=== PATIENT | male | born 1940 | race Asian ===

== ENCOUNTER 2016-05-24 08:28 | Inpatient (IN) | payer MEDICARE, BC, OTHER ==
[~2016-05-24] VITALS: Ht 165.1 cm; Wt 61.0 kg
[~2016-05-24 08:28] MED LIST: ASPI-825 PO; ATOR40TA28 PO; CAPT50TA3 PO; ESOM40CA PO; METF850T2 PO; MULT1TAB70 PO; NIFE-4 PO; PIOG45TA PO; TELM40 PO; VITA1CAP29 PO
[2016-05-24 09:14] LABS: ANION GAP 23 mmol/L (8-16); CALCIUM, TOTAL 8.7 mg/dL (8.8-10.5); CARBON DIOXIDE 15 mmol/L (22-29); CHLORIDE 94 mmol/L (98-107); CREATININE 1.78 mg/dL (0.60-1.30); GLOMERULAR FILTR. RATE CALC 37 mL/min (>60); POTASSIUM 4.8 mmol/L (3.5-5.1); SODIUM SERUM 132 mmol/L (136-145); UREA NITROGEN, BLOOD 20 mg/dL (7-18)
[2016-05-24 09:24] LABS: BASOPHILS % (AUTO) 0.1 % (0.0-2.0); EOSINOPHILS % (AUTO) 0.1 % (1.0-6.0); HEMATOCRIT 26.4 % (41-53); HEMOGLOBIN 8.4 g/dL (13.5-17.5); LYMPHOCYTES # (AUTO) 12.7 K/uL (1.0-4.8); MEAN CORPUSCULAR HEMOGLOBIN 28.8 pg (26.0-34.0); MEAN CORPUSCULAR HGB CONC 31.8 G/dL (31.0-37.0); MEAN CORPUSCULAR VOLUME 91 fL (80-100); MONOCYTES # (AUTO) 1.1 K/uL (0.1-1.0); MONOCYTES % (AUTO) 5.1 % (2.0-9.0); NEUTROPHILS # (AUTO) 8.4 K/uL (1.8-7.7); NEUTROPHILS % (AUTO) 37.7 % (40.0-70.0); RED BLOOD CELL COUNT(AUTO) 2.91 MIL/uL (4.50-5.90); RED CELL DISTRIBUTION WIDTH 18.7 % (11.5-14.5); WHITE BLOOD COUNT (AUTO) 22.2 K/uL (4.5-11.0)
[2016-05-24 09:35] LABS: B-TYPE NATRIURETIC PEPTIDE 119 pg/mL (0-100)
[2016-05-24 09:39] LABS: ALBUMIN 3.5 g/dL (3.4-5.0); ASPARTATE AMINOTRANSFERASE 73 U/L (15-37); BILIRUBIN,TOTAL 1.6 mg/dL (0.1-1.0); CREATINE KINASE MB 1.1 ng/mL (0-5); CREATINE KINASE, TOTAL 94 U/L (39-308); TOTAL PROTEIN, SERUM 7.9 g/dL (6.4-8.2)
[2016-05-24] MEDS ORDERED: OSELTAMIVIR PHOSPHATE 75 MG CAPSULE PO ONE (09:45)
[2016-05-24] MEDS ORDERED: CEFTAROLINE FOSAMIL 400 MG in DEXTROSE 5%-WATER 250 ML IV ONE (09:45)
[2016-05-24] MEDS ORDERED: AZITHROMYCIN 500 MG/NS 250 ML IV ONE (09:45)
[2016-05-24] MEDS ORDERED: SODIUM CHLORIDE 0.9% 1,000 ML IV ONE ×2 (09:45→13:15)
[2016-05-24 09:48] LABS: PLATELET COUNT (AUTO) 42 K/uL (150-450); RBC MORPHOLOGY COMMENT ABNORMAL RBC MORPH
[2016-05-24 09:54] LABS: INFLUENZA TYPE B NEGATIVE FOR TYPE B (NEGATIVE)
[2016-05-24 09:56] LABS: ABG A-A DIFF O2 434.4 mmHg (10-20.0); ABG BASE EXCESS -10.9 mmol/L (-2.0-3.0); ABG HCO3 16.6 mmol/L (22.0-26.0); ABG OXYHEMOGLOBIN 96.9 % (94.0-100.0); ABG PCO2 24 mmHg (35-45); ABG PH 7.389 (7.35-7.450); TEMPERATURE, FAHRENHEIT, BG 98.6 FAHREN (96.0-98.6)
[2016-05-24 09:57] LABS: ALLEN TEST, BLOOD GAS Positive; IPAP, BG 12 cm H2O
[2016-05-24 10:26] LABS: ALANINE AMINOTRANSFERASE 41 U/L (12-78)
[2016-05-24 10:26] LABS: LACTIC ACID 8.9 mmol/L (0.4-2.0)
[2016-05-24] MEDS ORDERED: ONDANSETRON HCL 4 MG/2 ML VIAL IVP PRN ×2 (11:00→13:15)
[2016-05-24] MEDS ORDERED: ACETAMINOPHEN 325 MG TABLET PO PRN ×2 (11:00→13:15)
[2016-05-24 11:41] LABS: REFLEX LACTIC ACID? YES YES
[2016-05-24] MEDS ORDERED: IPRATROPIUM BROMIDE 0.5 MG/2.5 ML NEB SOLUTION NEB PRN (13:15)
[2016-05-24] MEDS ORDERED: MAGNESIUM HYDROXIDE SUSPENSION 30 ML UDCUP PO PRN (13:15)
[2016-05-24] MEDS ORDERED: BISACODYL 10 MG RECTAL RECTAL SUPPOSITORY PR PRN (13:15)
[2016-05-24] MEDS ORDERED: HYDROCODONE/ACETAMINOPHEN 5-325 MG TABLET PO PRN (13:15)
[2016-05-24] MEDS ORDERED: MORPHINE SULFATE 2 MG/ML SYRINGE IVP PRN (13:15)
[2016-05-24] MEDS ORDERED: HydrALAZINE HCL 10 MG TABLET PO PRN (13:15)
[2016-05-24] MEDS ORDERED: ZOLPIDEM TARTRATE 5 MG TABLET PO PRN (13:15)
[2016-05-24] MEDS ORDERED: *CLINICAL-LEVOFLOXACIN IVPB DOSING CLINICAL ONE ×2 (13:15)
[2016-05-24] MEDS ORDERED: ALBUTEROL SULFATE 2.5 MG/0.5 ML NEB SOLUTION NEB PRN (13:15)
[2016-05-24] MEDS: ALBUTEROL SULFATE 2.5 MG/0.5 ML NEB SOLUTION NEB SCH ×2 (14:07→20:52)
[2016-05-24] MEDS: IPRATROPIUM BROMIDE 0.5 MG/2.5 ML NEB SOLUTION NEB SCH ×2 (14:07→20:52)
[2016-05-24 15:03] VITALS: BP 148/50
[2016-05-24] MEDS: HEPARIN SODIUM,PORCINE 5,000 UNITS/ML VIAL SQ SCH ×2 (17:21→23:41)
[2016-05-24] MEDS: BENZONATATE 100 MG CAPSULE PO SCH ×2 (17:21→21:08)
[2016-05-24] MEDS: MethylPREDNISolone SOD SUCC 125 MG/2 ML VIAL IVP SCH ×2 (17:26→23:42)
[2016-05-24 19:01] LABS: INR 1.1 (0.9-1.1); PROTHROMBIN TIME 11.7 SEC (9.4-11.6)
[2016-05-24 20:30] VITALS: BP 149/75
[2016-05-24] MEDS: BUDESONIDE 0.5 MG/2 ML NEB SOLUTION NEB SCH (20:52)
[2016-05-24] MEDS ORDERED: [UNRECOGNIZED DRUG - OTHER] PO SCH (21:00)
[2016-05-24] MEDS: ATORVASTATIN CALCIUM 40 MG TABLET PO SCH (21:08)
[2016-05-24] MEDS: NIFEdipine 30 MG ER TABLET PO SCH (21:09)
[2016-05-24] MEDS: DOCUSATE SODIUM 100 MG CAPSULE PO SCH (21:10)
[2016-05-24] MEDS: GuaiFENesin SR 600 MG ER TABLET PO SCH (21:10)
[2016-05-24 23:20] VITALS: BP 123/65
[2016-05-25] MEDS: ALBUTEROL SULFATE 2.5 MG/0.5 ML NEB SOLUTION NEB SCH ×4 (02:34→19:29)
[2016-05-25] MEDS: IPRATROPIUM BROMIDE 0.5 MG/2.5 ML NEB SOLUTION NEB SCH ×4 (02:34→19:29)
[2016-05-25 05:13] VITALS: BP 124/79
[2016-05-25] MEDS: MethylPREDNISolone SOD SUCC 125 MG/2 ML VIAL IVP SCH ×3 (05:45→18:44)
[2016-05-25 07:06] VITALS: BP 122/70
[2016-05-25] MEDS: BUDESONIDE 0.5 MG/2 ML NEB SOLUTION NEB SCH ×2 (07:36→19:29)
[2016-05-25] MEDS ORDERED: SODIUM CHLORIDE 0.9% 250 ML IV ONE (09:50)
[2016-05-25] MEDS: ATORVASTATIN CALCIUM 40 MG TABLET PO SCH ×2 (09:59→20:33)
[2016-05-25] MEDS: CAPTOPRIL 25 MG TABLET PO SCH (09:59)
[2016-05-25] MEDS: PANTOPRAZOLE SODIUM 40 MG DR TABLET PO SCH (09:59)
[2016-05-25] MEDS: NIFEdipine 30 MG ER TABLET PO SCH ×2 (09:59→20:33)
[2016-05-25] MEDS: ASPIRIN 81 MG CHEWABLE TABLET PO SCH (10:00)
[2016-05-25] MEDS: BENZONATATE 100 MG CAPSULE PO SCH ×3 (10:00→20:34)
[2016-05-25] MEDS: DOCUSATE SODIUM 100 MG CAPSULE PO SCH ×2 (10:00→20:33)
[2016-05-25] MEDS: MULTIVITAMINS, THERAPEUTIC TABLET PO SCH (10:00)
[2016-05-25] MEDS: GuaiFENesin SR 600 MG ER TABLET PO SCH ×2 (10:00→20:33)
[2016-05-25] MEDS: HEPARIN SODIUM,PORCINE 5,000 UNITS/ML VIAL SQ SCH ×2 (10:05→16:55)
[2016-05-25] MEDS: LEVOFLOXACIN 750 MG/D5% WATER 150 ML IV SCH (10:27)
[2016-05-25 11:20] VITALS: BP 131/77
[2016-05-25] MEDS ORDERED: DEXTROSE 50%-WATER 25 GM/50 ML SYRINGE IVP PRN (13:15)
[2016-05-25 15:18] VITALS: BP 131/67
[2016-05-25] MEDS: INSULIN ASPART 100 UNITS/ML SQ PRN ×2 (18:48→20:35)
[2016-05-25 19:55] VITALS: BP 124/60
[2016-05-25 20:31] LABS: GLUCOSE COMMENT 1 Received Meds; GLUCOSE,POINT OF CARE 298 MG/DL (70-110)
[2016-05-25 20:31] LABS: GLUCOSE COMMENT 1 Received Meds; GLUCOSE,POINT OF CARE 305 MG/DL (70-110)
[2016-05-25 23:52] VITALS: BP 121/63
[2016-05-26] MEDS: HEPARIN SODIUM,PORCINE 5,000 UNITS/ML VIAL SQ SCH ×3 (00:18→16:43)
[2016-05-26] MEDS: MethylPREDNISolone SOD SUCC 125 MG/2 ML VIAL IVP SCH ×4 (00:18→18:08)
[2016-05-26] MEDS: ALBUTEROL SULFATE 2.5 MG/0.5 ML NEB SOLUTION NEB SCH ×4 (02:24→19:36)
[2016-05-26] MEDS: IPRATROPIUM BROMIDE 0.5 MG/2.5 ML NEB SOLUTION NEB SCH ×4 (02:24→19:36)
[2016-05-26 04:43] VITALS: BP 124/66
[2016-05-26 06:26] LABS: GLUCOSE COMMENT 1 Received Meds; GLUCOSE,POINT OF CARE 270 MG/DL (70-110)
[2016-05-26] MEDS: INSULIN ASPART 100 UNITS/ML SQ PRN ×4 (06:42→22:09)
[2016-05-26 07:34] VITALS: BP 122/66
[2016-05-26] MEDS: BUDESONIDE 0.5 MG/2 ML NEB SOLUTION NEB SCH ×2 (08:32→19:36)
[2016-05-26] MEDS: ASPIRIN 81 MG CHEWABLE TABLET PO SCH (08:59)
[2016-05-26] MEDS: NIFEdipine 30 MG ER TABLET PO SCH ×2 (08:59→22:14)
[2016-05-26] MEDS: MULTIVITAMINS, THERAPEUTIC TABLET PO SCH (08:59)
[2016-05-26] MEDS: ATORVASTATIN CALCIUM 40 MG TABLET PO SCH ×2 (09:00→22:10)
[2016-05-26] MEDS: DOCUSATE SODIUM 100 MG CAPSULE PO SCH ×2 (09:00→21:00)
[2016-05-26] MEDS: PANTOPRAZOLE SODIUM 40 MG DR TABLET PO SCH (09:00)
[2016-05-26] MEDS: GuaiFENesin SR 600 MG ER TABLET PO SCH ×2 (09:01→22:10)
[2016-05-26] MEDS: BENZONATATE 100 MG CAPSULE PO SCH ×3 (09:03→22:10)
[2016-05-26] MEDS: CAPTOPRIL 25 MG TABLET PO SCH (09:04)
[2016-05-26 09:08] LABS: BASOPHILS # (AUTO) 0.03 K/uL (0.00-0.20); BASOPHILS % (AUTO) 0.4 % (0.0-2.0); EOSINOPHILS % (AUTO) 0.05 % (1.0-6.0); HEMATOCRIT 21.7 % (41-53); HEMOGLOBIN 7.1 g/dL (13.5-17.5); LYMPHOCYTES # (AUTO) 0.6 K/uL (1.0-4.8); LYMPHOCYTES % (AUTO) 7.3 % (22.0-44.0); MEAN CORPUSCULAR HEMOGLOBIN 28.6 pg (26.0-34.0); MEAN CORPUSCULAR HGB CONC 32.7 G/dL (31.0-37.0); MEAN CORPUSCULAR VOLUME 88 fL (80-100); MONOCYTES # (AUTO) 0.1 K/uL (0.1-1.0); MONOCYTES % (AUTO) 0.9 % (2.0-9.0); NEUTROPHILS # (AUTO) 7.6 K/uL (1.8-7.7); RED BLOOD CELL COUNT(AUTO) 2.48 MIL/uL (4.50-5.90); RED CELL DISTRIBUTION WIDTH 19.4 % (11.5-14.5); WHITE BLOOD COUNT (AUTO) 8.3 K/uL (4.5-11.0)
[2016-05-26 09:23] LABS: NEUTROPHILS % (AUTO) 91.4 % (40.0-70.0)
[2016-05-26 09:25] LABS: ANION GAP 12 mmol/L (8-16); CALCIUM, TOTAL 8.8 mg/dL (8.8-10.5); CARBON DIOXIDE 23 mmol/L (22-29); CHLORIDE 102 mmol/L (98-107); CREATININE 1.02 mg/dL (0.60-1.30); GLOMERULAR FILTR. RATE CALC > 60 mL/min (>60); POTASSIUM 3.8 mmol/L (3.5-5.1); SODIUM SERUM 137 mmol/L (136-145); UREA NITROGEN, BLOOD 29 mg/dL (7-18)
[2016-05-26 10:09] LABS: PLATELET COUNT (AUTO) 33 K/uL (150-450)
[2016-05-26 11:13] VITALS: BP 121/69
[2016-05-26 15:31] VITALS: BP 129/68
[2016-05-26 19:28] VITALS: BP 131/70
[2016-05-27] VITALS (14 sets, daily range): BP systolic 109–150; BP diastolic 49–86
[2016-05-27] MEDS: MethylPREDNISolone SOD SUCC 125 MG/2 ML VIAL IVP SCH ×4 (00:30→17:36)
[2016-05-27] MEDS: HEPARIN SODIUM,PORCINE 5,000 UNITS/ML VIAL SQ SCH ×2 (00:34→08:00)
[2016-05-27 01:46] LABS: GLUCOSE COMMENT 1 Received Meds; GLUCOSE,POINT OF CARE 319 MG/DL (70-110)
[2016-05-27] MEDS: ALBUTEROL SULFATE 2.5 MG/0.5 ML NEB SOLUTION NEB SCH ×3 (03:22→14:32)
[2016-05-27] MEDS: IPRATROPIUM BROMIDE 0.5 MG/2.5 ML NEB SOLUTION NEB SCH ×3 (03:22→14:32)
[2016-05-27] MEDS: INSULIN ASPART 100 UNITS/ML SQ PRN ×3 (06:12→17:24)
[2016-05-27 06:57] LABS: ANION GAP 10 mmol/L (8-16); CALCIUM, TOTAL 8.7 mg/dL (8.8-10.5); CARBON DIOXIDE 26 mmol/L (22-29); CHLORIDE 103 mmol/L (98-107); CREATININE 0.91 mg/dL (0.60-1.30); GLOMERULAR FILTR. RATE CALC > 60 mL/min (>60); POTASSIUM 3.9 mmol/L (3.5-5.1); SODIUM SERUM 139 mmol/L (136-145); UREA NITROGEN, BLOOD 27 mg/dL (7-18)
[2016-05-27 07:08] LABS: MEAN CORPUSCULAR HEMOGLOBIN 27.8 pg (26.0-34.0); MEAN CORPUSCULAR HGB CONC 31.6 G/dL (31.0-37.0); MEAN CORPUSCULAR VOLUME 88 fL (80-100); PLATELET COUNT (AUTO) 33 K/uL (150-450); RED BLOOD CELL COUNT(AUTO) 2.37 MIL/uL (4.50-5.90); WHITE BLOOD COUNT (AUTO) 6.6 K/uL (4.5-11.0)
[2016-05-27 07:13] LABS: HEMATOCRIT 20.9 % (41-53); HEMOGLOBIN 6.6 g/dL (13.5-17.5)
[2016-05-27 08:05] LABS: BAND NEUTROPHILS % (MANUAL) 6 % (1-5); LYMPHOCYTES % (MANUAL) 8 % (22-44); RBC MORPHOLOGY COMMENT ABNORMAL R; TOTAL CELLS COUNTED 100
[2016-05-27] MEDS: LEVOFLOXACIN 750 MG/D5% WATER 150 ML IV SCH (08:35)
[2016-05-27] MEDS: CAPTOPRIL 25 MG TABLET PO SCH (08:36)
[2016-05-27] MEDS: GuaiFENesin SR 600 MG ER TABLET PO SCH (08:36)
[2016-05-27] MEDS: PANTOPRAZOLE SODIUM 40 MG DR TABLET PO SCH (08:37)
[2016-05-27] MEDS: ATORVASTATIN CALCIUM 40 MG TABLET PO SCH (08:37)
[2016-05-27] MEDS: MULTIVITAMINS, THERAPEUTIC TABLET PO SCH (08:37)
[2016-05-27] MEDS: DOCUSATE SODIUM 100 MG CAPSULE PO SCH (08:37)
[2016-05-27] MEDS: BENZONATATE 100 MG CAPSULE PO SCH ×2 (08:38→16:50)
[2016-05-27] MEDS: NIFEdipine 30 MG ER TABLET PO SCH (08:38)
[2016-05-27] MEDS: ASPIRIN 81 MG CHEWABLE TABLET PO SCH (09:00)
[2016-05-27] MEDS: BUDESONIDE 0.5 MG/2 ML NEB SOLUTION NEB SCH (09:03)
[2016-05-27] MEDS ORDERED: SODIUM CHLORIDE 0.9% 250 ML IV ONE (10:36)
[2016-05-27] MEDS ORDERED: GLIP10 PO (13:40)
[2016-05-27] MEDS ORDERED: ATEN50TA PO (13:40)
[2016-05-27] MEDS ORDERED: CILO100T PO (13:40)
[2016-05-27] MEDS ORDERED: CLOP75 PO (13:40)
[2016-05-27] MEDS ORDERED: MONT10TA21 PO (13:40)
[2016-05-27] MEDS ORDERED: RANI150T7 PO (13:40)
[2016-05-27 21:06] LABS: GLUCOSE COMMENT 1 Received Meds; GLUCOSE,POINT OF CARE 306 MG/DL (70-110)
[2016-05-27 21:06] LABS: GLUCOSE COMMENT 1 Received Meds; GLUCOSE,POINT OF CARE 378 MG/DL (70-110)
[2016-05-28 08:37] LABS: GLUCOSE COMMENT 1 Received Meds; GLUCOSE,POINT OF CARE 326 MG/DL (70-110)
[2016-05-28 08:37] LABS: GLUCOSE,POINT OF CARE 326 MG/DL (70-110)
[2016-05-28 08:37] LABS: GLUCOSE COMMENT 1 Received Meds; GLUCOSE,POINT OF CARE 299 MG/DL (70-110)
[2016-05-28] MEDS ORDERED: LEVOFLOXACIN 750 MG/D5% WATER 150 ML IV SCH (09:00)
== END 2016-05-27 18:10 | DRG 871 ==
LOC: EMS 08:30 → 5S 14:23
PROVIDERS: ADMIT Internal Medicine; ATTEND Internal Medicine
PROC: 5A09457 Assistance with Respiratory Ventilation, 24-96 Consecutive Hours, Continuous Positive Airway Pressure (ICD-10-PCS; principal; 2016-05-24)
PROC: 30233N1 Transfusion of Nonautologous Red Blood Cells into Peripheral Vein, Percutaneous Approach (ICD-10-PCS; 2016-05-27)
DX: A41.9 Sepsis, unspecified organism (principal); J96.01 Acute respiratory failure with hypoxia; J18.9 Pneumonia, unspecified organism; N17.0 Acute kidney failure with tubular necrosis; R04.2 Hemoptysis; E87.2 Acidosis; E87.1 Hypo-osmolality and hyponatremia; D64.9 Anemia, unspecified; D69.6 Thrombocytopenia, unspecified; E11.65 Type 2 diabetes mellitus with hyperglycemia; E80.6 Other disorders of bilirubin metabolism; I12.9 Hypertensive chronic kidney disease with stage 1 through stage 4 chronic kidney disease, or unspecified chronic kidney disease; N18.9 Chronic kidney disease, unspecified; E11.22 Type 2 diabetes mellitus with diabetic chronic kidney disease; J84.10 Pulmonary fibrosis, unspecified; Z79.82 Long term (current) use of aspirin; Z79.899 Other long term (current) drug therapy; Z98.890 Other specified postprocedural states; Z87.891 Personal history of nicotine dependence
CPT/HCPCS: 70486; 71250; 82805; 82962; 83036; 83605; 86850; 86900; 86901; 86920; 87040; 87804; 93005; 94640; 94660; 96361; 96365; 96368; 99291; J0456; J0712; J1644; J1956; J2930; J7030; J7050; J7060; P9016